=== PATIENT | male | born 1985 | race American Indian/Alaskan Native ===

== ENCOUNTER 2025-01-25 10:00 | Day surgery (SDC) | payer MEDICAID, SELFPAY ==
[2025-01-24 10:43] VITALS: BMI 31.5
[2025-01-25] VITALS (11 sets, daily range): BP systolic 106–144; BP diastolic 65–99; PULSE 66–111; RESP 12–21; TEMP 36.2–37.2; O2SAT 95–100; BMI 30.4
[2025-01-25] MEDS: RINGERS LACTATED 500 ML 500 ML 20 ML IV (12:05)
[2025-01-25] MEDS: fentaNYL CIT INJ 50 mCg/ML AMP 2ML (ASD USE ONLY) IVP (12:10)
[2025-01-25] MEDS: MIDAZOLAM INJ 1 MG/ML VIAL 2 ML (ASD USE ONLY) 2 MG IVP ×2 (12:15→12:26)
[2025-01-25] MEDS: SIMETHICONE 40 MG/0.6 ML ORAL SYRINGE PO (12:17)
== END 2025-01-25 13:05 | disposition home or self-care (01) ==
PROVIDERS: PCP Family Medicine; Referring Provider Internal Medicine Gastroenterology; Visit Provider Internal Medicine Gastroenterology
PROC: 0DBE8ZX Excision of Large Intestine, Via Natural or Artificial Opening Endoscopic, Diagnostic (ICD-10-PCS; CPT 45380; principal; 2025-01-25 12:15)
DX: D12.3 Benign neoplasm of transverse colon (principal); K64.9 Unspecified hemorrhoids
CPT/HCPCS: 45385; A4649; J1200; J2250; J3010; J7120; A9270